=== PATIENT | female | born 1980 | race Caucasian/White ===

== ENCOUNTER 2016-12-06 23:27 | Emergency (ER) | payer BC, MEDICAID, OTHER ==
[2016-12-06 23:37] VITALS: BP 115/78
--- NOTE | 2016-12-07 00:24 | ED ---
Skin Complaint - HPI Summary HPI Summary: Patient has had wood splinters embedded in her upper back for 20 years from a childhood injury. She occasionally has one erupt from her skin that typically resolves, but 5 days ago another one erupted and this time it progressed into a red, hot, swollen area that is extremely painful. She is afebrile, but has lymph node swelling in her right armpit. She noticed pus draining from the area yesterday. No streaking or active drainage today. - History of Current Complaint Chief Complaint: EDRashSkinAbscess Time Seen by Provider: 12/06/16 23:45 Stated Complaint: BACK PAIN//POS INFECTION UPPER BACK Hx Obtained From: Patient Hx Last Menstrual Period: 08/14/2012 Onset/Duration: Started Days Ago - 5, Atraumatic, Worse Since Skin Exposure Onset/Duration: Days Ago - 5 Timing: Constant Onset Severity: Moderate Current Severity: Severe Pain Intensity: 7 Skin Location: Other: - right upper back Character: Swelling, Pain, Redness Aggravating Symptom(s): Touch Alleviating Symptom(s): Nothing Associated Signs & Symptoms: Drainage - pus yesterday, Tenderness Related History: Foreign Body - Allergy/Home Medications Allergies/Adverse Reactions: Allergies Allergy/AdvReac Type Severity Reaction Status Date / Time Penicillins Allergy Severe Difficulty Verified 12/06/16 23:49 Breathing/Wheezing Codeine Allergy Intermediate Hives/Diff. Verified 12/06/16 23:49 Breathing/I tching Sulfamethoxazole Allergy Intermediate Hives/Diff. Verified 12/06/16 23:49 w/Trimethoprim Breathing/I [From Bactrim] tching Acetaminophen [From Tylenol] Allergy Hives/Diff. Verified 12/06/16 23:49 Breathing/I tching PMH/Surg Hx/FS Hx/Imm Hx Endocrine/Hematology History: Denies: Hx Diabetes, Hx Thyroid Disease Cardiovascular History: Denies: Hx Hypertension Respiratory History: Reports: Hx Asthma - As child Denies: Hx Chronic Obstructive Pulmonary Disease (COPD) GI History: Denies: Hx Ulcer - Surgical History Surgery Procedure, Year, and Place: 2 C sections, removal of adhesions x4 and abnormal cells on tubes and ovaries. - Immunization History Date of Tetanus Vaccine: utd Date of Influenza Vaccine: none Infectious Disease History: No Infectious Disease History: Denies: Hx Hepatitis, Hx Human Immunodeficiency Virus (HIV), Traveled Outside the [place] in Last 30 Days - Family History Known Family History: Positive: Cardiac Disease, Hypertension - Social History Occupation: Employed Full-time Lives: With Family Alcohol Use: None Substance Use Type: Reports: None Smoking Status (MU): Heavy Every Day Tobacco Smoker Cessation Counseling: Patient Advised to Stop Review of Systems Negative: Fever, Chills Positive: Other - erythema, edema on right upper back All Other Systems Reviewed And Are Negative: Yes Physical Exam Triage Information Reviewed: Yes Vital Signs On Initial Exam: Initial Vitals Temp Pulse Resp BP Pulse Ox 98.9 F 86 16 115/78 99 12/06/16 23:30 12/06/16 23:30 12/06/16 23:30 12/06/16 23:30 12/06/16 23:30 Vital Signs Reviewed: Yes Appearance: Positive: Well-Appearing, Well-Nourished, Pain Distress Skin: Positive: Warm, Skin Color Reflects Adequate Perfusion, Dry, Tender, Erythema @ - 5 cm area of erythema with 2cm central area of enduration with 1cm area fluctuance; 5 pustules without active drainage on the endurated area; no streaking; tender to light touch Head/Face: Positive: Normal Head/Face Inspection Eyes: Positive: EOMI, ALETA, Conjunctiva Clear ENT: Positive: Hearing grossly normal Neck: Positive: Supple, Nontender, Enlarged Nodes @ - right axillary nodes mildly swollen and tender Respiratory/Lung Sounds: Positive: Breath Sounds Present Cardiovascular: Positive: RRR Musculoskeletal: Positive: Strength/ROM Intact Neurological: Positive: Sensory/Motor Intact, Alert, Oriented to Person Place, Time, [place] Bundle Intact Distally Psychiatric: Positive: Affect/Mood Appropriate AVPU Assessment: Alert - [place]ul Coma Scale Coma Scale Total: 15 Procedures - Incision and Drainage Site: right upper back Anesthesia: Local, Lidocaine - 2% Instrument(s): Scalpel Packing: Other - open for drainage Diagnostics - Vital Signs Vital Signs Temp Pulse Resp BP Pulse Ox 12/06/16 23:30 98.9 F 86 16 115/78 99 - Laboratory Lab Statement: Any lab studies that have been ordered have been reviewed, and results considered in the medical decision making process. Course/Dx - Differential Diagnoses - Skin Complaint Differential Diagnoses: Abscess, Cellulitis, Contact Dermatitis, Foreign Body, Local Allergic Reaction, MRSA, Systemic Illness - Diagnoses Provider Diagnoses: Abscess Discharge - Discharge Plan Condition: Stable Disposition: HOME Prescriptions: Clindamycin CAP* [Cleocin 150 MG CAP*] 150 mg PO QID #80 cap Ibuprofen TAB* [Motrin TAB* 800 MG] 800 mg PO Q6H PRN #60 tab PRN Reason: Pain traMADol TAB* [Ultram*] 50 mg PO Q12H PRN #6 tab MDD 2 PRN Reason: Pain Patient Education Materials: Incision and Drainage (ED) Referrals: Non Staff,Doctor [Primary Care Provider] - eHrmes Thomas MD [Medical Doctor] - Additional Instructions: Please take your antibiotics as directed until they are completely gone. Take ibuprofen 600mg three times daily with meals for the next 3-5 days to reduce swelling and pain. Add a pain pill for pain not managed by ibuprofen. Change your dressing twice daily and wash with soap and warm water daily (in the shower is acceptable) to allow any drainage to occur. Call Dr. Thomas with surgery for an appointment to discuss surgical removal of the remaining splinters. If you have an appointment with surgery on Thursday, they can assess your wound, otherwise you need to return to this emergency department or [facility] for re-evaluation in 48 hours for a wound check. If your symptoms worsen sooner , come back to the emergency department sooner for evaluation.
[2016-12-07] MEDS ORDERED: Clindamycin CAP* 150 MG PO ONE (00:27)
[2016-12-07] MEDS ORDERED: Ibuprofen TAB* 400 MG PO ONE (00:28)
[2016-12-07] MEDS ORDERED: Clindamycin CAP* 150 MG ONE (00:46)
[2016-12-07] MEDS ORDERED: traMADol TAB* 50 MG PO ONE (00:48)
== END 2016-12-07 00:58 | disposition home or self-care (01) ==
LOC: ED 23:27
DX: L02.212 Cutaneous abscess of back [any part, except buttock and flank] (principal); M54.9 Dorsalgia, unspecified; F17.200 Nicotine dependence, unspecified, uncomplicated; R50.9 Fever, unspecified
CPT/HCPCS: 10060; 87070; 87205; 99282; A9270-GY

== ENCOUNTER 2017-12-08 16:08 | Emergency (ER) | payer MEDICAID ==
[2017-12-08] MEDS ORDERED: Metoclopramide IV* 5 MG/ML 2 ML VIAL IV SLOW PU ONE (19:45)
[2017-12-08] MEDS ORDERED: diPHENhydraMINE IV* 50 MG/ML 1 ml VIAL (BENADRYL) SLOW PUSH ONE (19:46)
[2017-12-08 20:00] LABS: Hematocrit 42 % (35-47); Hemoglobin 14.5 g/dl (12.0-16.0); Mean Corpuscular HGB Conc 34 g/dl (31-36); Mean Corpuscular Hemoglobin 31 pg (27-31); Mean Corpuscular Volume 90 fL (80-97); Mean Platelet Volume 9 um3 (7.4-10.4); Platelet Count 235 10^3/ul (150-450); Red Blood Count 4.68 10^6/ul (4.0-5.4); Red Cell Distribution Width 14 % (10.5-15); White Blood Count 11.5 10^3/ul (3.5-10.8)
[2017-12-08 20:06] LABS: ABS Basophils 0.1 10^3/ul (0-0.2); ABS Eosinophils 0.1 10^3/ul (0-0.6); ABS Lymphocytes 4.6 10^3/ul (1.0-4.8); ABS Monocytes 0.6 10^3/ul (0-0.8); ABS Neutrophils 5.7 10^3/ul (1.5-7.7); ABS Nucleated RBC 0 10^3/ul; Eosinophil % 1.1 % (0-6); Lymphocyte % 41.3 % (25-47); Nucleated Red Blood Cells % 0
[2017-12-08 20:12] LABS: EGFR Non-African American 96.3 (>60)
[2017-12-08 20:14] LABS: Urine Appearance Cloudy; Urine Blood Negative (Negative); Urine Color Yellow; Urine Ketones Negative (Negative); Urine Protein Negative (Negative); Urine Specific Gravity 1.009 (1.010-1.030); Urine Urobilinogen Negative (Negative)
--- NOTE | 2017-12-08 20:22 | RAD ---
INDICATION: Head pressure and visual symptoms. Visual symptoms have since resolved COMPARISON: None TECHNIQUE: Noncontrast axial source images were acquired from the skull base to the vertex. FINDINGS: Ventricles/sulci: The ventricles and cisterns are normal in size and configuration for age. Brain parenchyma: There are bilateral basal ganglia calcifications. There are no other focal parenchymal finding, evidence of intracranial mass, or intracranial mass effect. Intracranial hemorrhage:None. Extra-axial spaces: There are no abnormal extra axial fluid collections or evidence of extra-axial mass. Calvarium: There is no calvarial fracture or other calvarial abnormality. Scalp: There is no evidence of scalp or extracalvarial soft tissue abnormality. Paranasal sinuses/mastoid: The paranasal sinuses and mastoid air cells are clear. Other: None. IMPRESSION: No acute findings. Bilateral basal ganglia calcifications. Although commonly an idiopathic finding, this finding is relatively uncommon in patients less than 40 years of age. In addition to a idiopathic etiologies, consider toxic, infectious, metabolic or inherited causes.
[2017-12-08] MEDS ORDERED: Dexamethasone IV* 4 MG/ML 1 ML (4 MG) IV SLOW PU ONE (21:39)
[2017-12-08] MEDS ORDERED: Magnesium Sulfate 2 GM IV* 2 GM/50 ML BAG IVPB ONE (21:39)
[2017-12-08] MEDS ORDERED: Metoclopramide TAB* 10 MG PO ONE (22:54)
[2017-12-08 23:36] VITALS: BP 99/57
--- NOTE | 2017-12-10 13:50 | ED ---
Elmer Frye Stephanie, scribed for Luis Fu MD on 12/08/17 at 2000 . Headache - HPI Summary HPI Summary: The pt is a 37 y/o F presenting to the ED with c/o a headache that began last night when she attempted to complete a BM. She describes her pain as a sharp pain at the back of her skull. Symptoms include sensitivity to light, nausea, diaphoresis, chills, neck soreness, and vomiting. The pt called an ambulance s/ p the incident last night but reports that her symptoms slightly were relieved when the ambulance arrived so she opted not to go to the hospital. S/p the incident, the pt lost her vision and her ability to ambulate for approximately 30 minutes. The pt described the headache as being hit by a ton of bricks for about 30 minutes. The pt rates her pain as above a 10 in severity. She denies head trauma and is unaware of whether LOC occurred. - History Of Current Complaint Chief Complaint: EDHeadache Stated Complaint: HEAD PAIN,LOSS OF VISION NIGHT Time Seen by Provider: 12/08/17 19:33 Hx Obtained From: Patient Hx Last Menstrual Period: 08/14/2012 Onset/Duration: Sudden Onset, Still Present - s/p attempting a BM yesterday Initially Headache Was: "Worst Headache Ever", Initial Pain Scale(0-10)= - above a 10. Currently Pain Is: Current Pain Scale(0-10)= - above a 10 Timing: Constant Character: Sharp, Unable To Describe Location of Headache: Occipital Aggravating Factor: Nothing Allevating Factors: Nothing Associated Signs And Symptoms: Nausea, Vomiting, Neck Stiffness, Visual Changes , Other (Noted In Comments) - sensitivity to light, diaphoresis, chills, - Allergies/Home Medications Allergies/Adverse Reactions: Allergies Allergy/AdvReac Type Severity Reaction Status Date / Time Penicillins Allergy Severe Difficulty Verified 12/06/16 23:49 Breathing/Wheezing Codeine Allergy Intermediate Hives/Diff. Verified 12/06/16 23:49 Breathing/I tching Sulfamethoxazole Allergy Intermediate Hives/Diff. Verified 12/06/16 23:49 w/Trimethoprim Breathing/I [From Bactrim] tching Acetaminophen [From Tylenol] Allergy Hives/Diff. Verified 12/06/16 23:49 Breathing/I tching PMH/Surg Hx/FS Hx/Imm Hx Endocrine/Hematology History: Denies: Hx Diabetes, Hx Thyroid Disease Cardiovascular History: Denies: Hx Hypertension Respiratory History: Reports: Hx Asthma - As child Denies: Hx Chronic Obstructive Pulmonary Disease (COPD) GI History: Denies: Hx Ulcer EENT History: Denies: Hx Deafness - Surgical History Surgery Procedure, Year, and Place: 2 C sections, removal of adhesions x4 and abnormal cells on tubes and ovaries. - Immunization History Date of Tetanus Vaccine: utd Date of Influenza Vaccine: none Infectious Disease History: No Infectious Disease History: Denies: Hx Hepatitis, Hx Human Immunodeficiency Virus (HIV), Traveled Outside the [place] in Last 30 Days - Family History Known Family History: Positive: Cardiac Disease, Hypertension - Social History Occupation: Unemployed Lives: With Family - daughter Alcohol Use: None Substance Use Type: Reports: None Smoking Status (MU): Heavy Every Day Tobacco Smoker Review of Systems Positive: Chills, Skin Diaphoresis. Negative: Fever Positive: Photophobia. Negative: Erythema Negative: Sore Throat Negative: Chest Pain Negative: Shortness Of Breath, Cough Positive: Vomiting, Nausea. Negative: Abdominal Pain Negative: dysuria, hematuria Positive: Other - neck soreness. Negative: Myalgia, Edema Negative: Rash Neurological: Other - Negative: dizziness Positive: Headache All Other Systems Reviewed And Are Negative: Yes Physical Exam - Summary Physical Exam Summary: Constitutional: Well-developed, Well-nourished, Alert, significant pain distress. Skin: Warm, Dry HENT: Atraumatic, Pupils pinpoint bilaterally. Eyes: Conjunctiva normal Neck: Musculoskeletal ROM normal neck. (-) JVD, (-) Stridor, (-) Tracheal deviation Cardio: Rhythm regular, rate normal, Heart sounds normal; Intact distal pulses; The pedal pulses are 2+ and symmetric. Radial pulses are 2+ and symmetric. (-) Murmur Pulmonary/Chest wall: Effort normal. (-) Respiratory distress, (-) Wheezes, (-) Rales Abd: Soft, (-) Tenderness, (-) Distension, (-) Guarding, (-) Rebound Musculoskeletal: (-) Edema Lymph: (-) Cervical adenopathy Neuro: Alert, Oriented x3 Psych: Mood and affect Normal Triage Information Reviewed: Yes Vital Signs On Initial Exam: Initial Vitals Temp Pulse Resp BP Pulse Ox 99.9 F 87 18 115/62 97 12/08/17 16:27 12/08/17 16:27 12/08/17 16:27 12/08/17 16:27 12/08/17 16:27 Vital Signs Reviewed: Yes - [place] Coma Scale Coma Scale Total: 15 Diagnostics - Vital Signs Vital Signs Temp Pulse Resp BP Pulse Ox 12/08/17 19:06 97.4 F 82 20 128/64 100 12/08/17 16:27 99.9 F 87 18 115/62 97 - Laboratory Result Diagrams: 12/08/17 19:45 12/08/17 19:45 Lab Statement: Any lab studies that have been ordered have been reviewed, and results considered in the medical decision making process. - CT Brain CT Interpretation: Positive (See Comments) CT Interpretation Completed By: Radiologist Re-Evaluation - Re-Evaluation First Eval Re-Evaluation Time: 21:24 Change: Improved - Pt's headache has resolved. Second Eval Re-Evaluation Time: 21:41 Change: Improved - headache rated as a 3 in severity.The pt decided that she does not want a spinal tap.The pt is deciding AMA. She understands the risk of subarachnoid hemorrhage, pseudotumor ceribri. Headache Course/Dx - Course Course Of Treatment: The pt decided that she does not want a spinal tap.The pt is deciding AMA. She understands the risk of subarachnoid hemorrhage, pseudotumor cerebri. ED physician discussed with her 90% sensitivity of CT for bleed at 24 hours. Lumbar puncture is highly recommended. Pt is leaving AMA. She understands risk of sub arachnoid hemorrhage and aneurism. The pt understands the possibility of disability and . She does not want to proceed with the procedure. ED physician encouraged her to return in she changes her mind. - Diagnoses Provider Diagnoses: Left against medical advice, [place] headache Discharge - Discharge Plan Condition: Stable Disposition: HOME Prescriptions: Metoclopramide TAB* [Reglan TAB*] 10 mg PO Q8H #6 tab Referrals: Non Staff,Doctor [Primary Care Provider] - The documentation as recorded by the Elmre resendiz Stephanie accurately reflects the service I personally performed and the decisions made by me, Luis Fu MD.
== END 2017-12-08 23:37 | disposition left against medical advice (07) ==
LOC: ED 16:08
DX: R11.2 Nausea with vomiting, unspecified (principal); R51 Headache; H53.149 Visual discomfort, unspecified; F17.210 Nicotine dependence, cigarettes, uncomplicated; Z53.21 Procedure and treatment not carried out due to patient leaving prior to being seen by health care provider
CPT/HCPCS: 36415; 70450; 80053; 80307; 81003; 83605; 85025; 86140; 96374; 96375; 99284; A9270-GY; J1100; J1200; J2765; J3475

== ENCOUNTER 2017-12-11 15:38 | Emergency (ER) | payer MEDICAID ==
[2017-12-11] MEDS ORDERED: PROCHLORPERAZINE INJ 5 MG/ML 2 ML VIAL IV ONE (17:00)
[2017-12-11] MEDS ORDERED: diPHENhydraMINE IV* 50 MG/ML 1 ml VIAL (BENADRYL) SLOW PUSH ONE (17:01)
[2017-12-11] MEDS ORDERED: Magnesium Sulfate 2 GM IV* 2 GM/50 ML BAG IVPB ONE (17:01)
[2017-12-11] MEDS ORDERED: Dexamethasone IV* 4 MG/ML 1 ML (4 MG) IV SLOW PU ONE (17:01)
[2017-12-11 17:02] LABS: Hematocrit 41 % (35-47); Hemoglobin 13.9 g/dl (12.0-16.0); Mean Corpuscular HGB Conc 34 g/dl (31-36); Mean Corpuscular Hemoglobin 31 pg (27-31); Mean Corpuscular Volume 92 fL (80-97); Mean Platelet Volume 9 um3 (7.4-10.4); Platelet Count 215 10^3/ul (150-450); Red Blood Count 4.46 10^6/ul (4.0-5.4); Red Cell Distribution Width 14 % (10.5-15); White Blood Count 15.2 10^3/ul (3.5-10.8)
[2017-12-11] MEDS: NS 0.9% 1000 ML* 2,000 ML IV ONE ×2 (17:24→17:25)
[2017-12-11] MEDS ORDERED: Iohexol 350* (CONTRAST) 500 ML MDV IV ONE (17:40)
[2017-12-11] MEDS ORDERED: cefTRIAXone(*) 2 GM in NS 0.9% 100 ML* 100 ML IVPB ONE (17:51)
[2017-12-11] MEDS ORDERED: Haloperidol INJ IV/IM* 5 MG/ML AMP IV SLOW PU ONE (18:03)
--- NOTE | 2017-12-11 18:55 | RAD ---
INDICATION: Headaches COMPARISON: CT brain December 08, 2017 TECHNIQUE: Axial source images were acquired with coronal and sagittal reconstructions. CT angiographic technique was utilized with injection of 60 mL Omnipaque 350. FINDINGS: Right carotid: The carotid artery at the skull base, carotid siphon, and carotid termination appear normal. Left carotid: The carotid artery at the skull base, carotid siphon, and carotid termination appear normal. Right middle and anterior cerebral arteries: There are no CT angiographic abnormalities of the middle or anterior cerebral arteries. Left middle and anterior cerebral arteries: There are no CT angiographic abnormalities of the middle or anterior cerebral arteries. Right vertebral: The CT angiographic appearance of the visualized vertebral artery is normal. Left vertebral: The CT angiographic appearance of the visualized vertebral artery is normal. Basilar artery: The basilar artery and basilar tip appear normal. Posterior cerebral arteries: The distal distribution of the right and left posterior cerebral arteries is normal. [place] of [place]: The CT angiographic appearance of the [place] is intact. The posterior communicating arteries are very diminutive or absent. This is a normal variant. Source images show no focal brain parenchymal abnormalities or abnormal areas of enhancement. The noncontrast images again show basal ganglia calcifications IMPRESSION: NO SPECIFIC CT ANGIOGRAPHIC ABNORMALITIES. CPT II Codes: 3100F PQRS
[2017-12-11 21:38] VITALS: BP 0/0
--- NOTE | 2017-12-18 15:47 | ED ---
Howard Frye Nilda, scribed for Luis Fu MD on 12/11/17 at 1708 . Headache - HPI Summary HPI Summary: This patient is a 37 year old F presenting to [facility] accompanied by with a chief complaint of intermittent severe pounding headache in back of her head since a couple days ago. Pt was in ED a couple days ago with same symptoms and left AMA to try to get well at home. Pt states symptoms have only worsened. The patient rates the pain 9/10 in severity. Symptoms aggravated by movement and bright lights. Symptoms alleviated by nothing. Patient reports dizziness, right ear pain (began today), vomiting (last time earlier today), chills, dull neck pain, photophobia, diaphoresis, and blurry vision. Patient denies tingling and numbness in extremities. Pt states this headache is not similar to previous episodes of migraines. LNMP was recent. Per , pt PMHx includes migraines , spinal meningitis, brain tumors, and cervical cancer. 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 - Hx Last Menstrual Period: 08/14/2012 Onset/Duration: Sudden Onset, Started days ago, Still Present Initially Headache Was: Initial Pain Scale(0-10)= - 9, Severe Currently Pain Is: Current Pain Scale(0-10)= - 9, Severe Timing: Intermittent, Lasting:, Hours Character: Throbbing Location of Headache: Other: - back of head Aggravating Factor: Exertion, Bright Lights Allevating Factors: Nothing Associated Signs And Symptoms: Other (Noted In Comments) - dizziness, vomiting, right ear pain (began today), vomiting (last time earlier today), chills, dull neck pain, photophobia, diaphoresis, and blurry vision. Patient denies tingling and numbness in extremities. - Allergies/Home Medications Allergies/Adverse Reactions: Allergies Allergy/AdvReac Type Severity Reaction Status Date / Time Penicillins Allergy Severe Difficulty Verified 12/06/16 23:49 Breathing/Wheezing Codeine Allergy Intermediate Hives/Diff. Verified 12/06/16 23:49 Breathing/I tching Sulfamethoxazole Allergy Intermediate Hives/Diff. Verified 12/06/16 23:49 w/Trimethoprim Breathing/I [From Bactrim] tching Acetaminophen [From Tylenol] Allergy Hives/Diff. Verified 12/06/16 23:49 Breathing/I tching PMH/Surg Hx/FS Hx/Imm Hx Endocrine/Hematology History: Denies: Hx Diabetes, Hx Thyroid Disease Cardiovascular History: Denies: Hx Hypertension Respiratory History: Reports: Hx Asthma - As child Denies: Hx Chronic Obstructive Pulmonary Disease (COPD) GI History: Denies: Hx Ulcer Musculoskeletal History: Reports: Other Musculoskeletal History - spinal meningitis Sensory History: Denies: Hx Deafness - Cancer History Cancer Type, Location and Year: cervical cancer, brain tumors - Surgical History Surgery Procedure, Year, and Place: 2 C sections, removal of adhesions x4 and abnormal cells on tubes and ovaries. - Immunization History Date of Tetanus Vaccine: utd Date of Influenza Vaccine: none Infectious Disease History: No Infectious Disease History: Denies: Hx Hepatitis, Hx Human Immunodeficiency Virus (HIV), Traveled Outside the [place] in Last 30 Days - Family History Known Family History: Positive: Cardiac Disease, Hypertension - Social History Lives: With Family Alcohol Use: None Substance Use Type: Reports: None Smoking Status (MU): Heavy Every Day Tobacco Smoker Review of Systems Positive: Chills, Skin Diaphoresis. Negative: Fever Positive: Photophobia, Blurred Vision. Negative: Erythema Positive: Ear Ache - right. Negative: Sore Throat Negative: Chest Pain Negative: Shortness Of Breath, Cough Positive: Vomiting, Nausea. Negative: Abdominal Pain Negative: dysuria, hematuria Positive: Other - dull neck pain. Negative: Myalgia, Edema Negative: Rash Neurological: Other - dizziness; negative tingling and numbness in extremities Positive: Headache All Other Systems Reviewed And Are Negative: Yes Physical Exam - Summary Physical Exam Summary: Constitutional: Well-developed, Well-nourished, Alert. Pain Distressed Skin: Warm, Dry HENT: Normocephalic; Atraumatic; dry oral mucosa Eyes: Conjunctiva normal; photophobic Neck: Musculoskeletal ROM normal neck. (-) JVD, (-) Stridor, (-) Tracheal deviation; no nuchal rigidity Cardio: Rhythm regular, rate normal, Heart sounds normal; Intact distal pulses; The pedal pulses are 2+ and symmetric. Radial pulses are 2+ and symmetric. (-) Murmur Pulmonary/Chest wall: Effort normal. (-) Respiratory distress, (-) Wheezes, (-) Rales Abd: Soft, (-) Tenderness, (-) Distension, (-) Guarding, (-) Rebound Musculoskeletal: (-) Edema Lymph: (-) Cervical adenopathy Neuro: Alert, Oriented x3 Psych: Mood and affect Normal Triage Information Reviewed: Yes Vital Signs On Initial Exam: Initial Vitals Temp Pulse Resp BP Pulse Ox 99.4 F 71 16 125/80 98 12/11/17 16:01 12/11/17 16:01 12/11/17 16:01 12/11/17 16:01 12/11/17 16:01 Vital Signs Reviewed: Yes - Mehul Coma Scale Coma Scale Total: 15 Diagnostics - Vital Signs Vital Signs Temp Pulse Resp BP Pulse Ox 12/11/17 16:01 99.4 F 71 16 125/80 98 - Laboratory Lab Results: Lab Results 12/11/17 Range/Units 16:52 WBC 15.2 H (3.5-10.8) 10^3/ul RBC 4.46 (4.0-5.4) 10^6/ul Hgb 13.9 (12.0-16.0) g/dl Hct 41 (35-47) % MCV 92 (80-97) fL MCH 31 (27-31) pg MCHC 34 (31-36) g/dl RDW 14 (10.5-15) % Plt Count 215 (150-450) 10^3/ul MPV 9 (7.4-10.4) um3 Result Diagrams: 12/11/17 16:52 12/11/17 16:52 Lab Statement: Any lab studies that have been ordered have been reviewed, and results considered in the medical decision making process. - CT CTA Head CT Interpretation Completed By: Radiologist - CTA head, per radiologist, reveals no specific CT angiographic abnormalities. Dr. Fu has reviewed this radiology report. Re-Evaluation - Re-Evaluation First Eval Re-Evaluation Time: 21:18 Comment: Reviewed labs and imaging report. Headache Course/Dx - Course Assessment/Plan: This patient is a 37 year old F presenting to [facility] accompanied by with a chief complaint of intermittent worsening severe pounding headache in back of her head since a couple days ago. Pt was in ED a couple days ago with same symptoms and left AMA to try to get well at home. Pt states symptoms have only worsened. The patient rates the pain 9/10 in severity. Symptoms aggravated by movement and bright lights. Symptoms alleviated by nothing. Patient reports dizziness, right ear pain (began today), nausea, vomiting (last time earlier today), chills, dull neck pain, photophobia , diaphoresis, and blurry vision. Patient denies tingling and numbness in extremities. Pt states this headache is not similar to previous episodes of migraines. LNMP was recent. Per , pt PMHx includes migraines, spinal meningitis, brain tumors, and cervical cancer. Pending CTA head and labs. Blood work is without significant abnormalities except elevated WBC 15.2. CTA head, per radiologist, reveals no specific CT angiographic abnormalities. Dr. Fu has reviewed this radiology report. In the ED course, the patient was given Decadron, Benadryl, Haldol, Compazine, IV fluids, and Rocephin. Pt consented to LP, but upon ED Physician entering room, pt changed her mind and decided not to do LP. She opted to leave AMA. Dx of Left AMA, headache, elevated WBC which can reflect meningitis. Subarachnal hemorrhoid and pseudo tumor are still in the differential. Pt understood the risk of blindness, sepsis , , stroke, and disability. - Diagnoses Differential Diagnosis/HQI/PQRI: Subarachnoid Hemorrhage, Other - pseudo tumor Provider Diagnoses: Left against medical advice, Headache, Elevated WBCs Discharge - Discharge Plan Condition: Stable Disposition: AGAINST MEDICAL ADVICE Referrals: No Primary Care Phys,NOPCP [Primary Care Provider] - The documentation as recorded by the Howard resendiz Nilda accurately reflects the service I personally performed and the decisions made by me, Luis Fu MD.
== END 2017-12-11 21:37 | disposition left against medical advice (07) ==
LOC: ED 15:38
DX: R51 Headache (principal); D72.829 Elevated white blood cell count, unspecified; R42 Dizziness and giddiness; H92.01 Otalgia, right ear; R11.10 Vomiting, unspecified; M54.2 Cervicalgia; H53.149 Visual discomfort, unspecified; H53.8 Other visual disturbances; R61 Generalized hyperhidrosis; J45.909 Unspecified asthma, uncomplicated; Z88.6 Allergy status to analgesic agent; Z88.5 Allergy status to narcotic agent; Z88.0 Allergy status to penicillin; Z88.2 Allergy status to sulfonamides; F17.210 Nicotine dependence, cigarettes, uncomplicated
CPT/HCPCS: 36415; 70496; 80053; 85027; 86140; 96365; 96366; 96375; 99283; J0696; J0780; J1100; J1200; J1630; J3475; Q9967